=== PATIENT | male | born 1975 | race Caucasian/White ===

== ENCOUNTER 2024-08-16 16:46 | Inpatient (IN) | payer BC, OTHER ==
[2024-08-16 16:52] VITALS: BMI 27.7
[2024-08-16] MEDS ORDERED: VANCOMYCIN HCL 1,500 MG in DEXTROSE 5%-WATER - 500 ML IVPB ONE (17:49)
[2024-08-16] MEDS ORDERED: ACETAMINOPHEN INJECTION 100 ML ONE (18:02)
[2024-08-16] MEDS ORDERED: PIPERACILLIN/TAZOB 3.375 GM 3.375 GM/50 ML BAG IVPB ONE (18:03)
[2024-08-16 18:35] LABS: EOS % 3.4 % (0-4.5); HEMATOCRIT 39.7 % (35.4-49); HEMOGLOBIN 13.6 GM/dL (11.7-16.9); LYMPH % 25.3 % (8-40); MCH 28.9 pg (25.7-33.7); MCHC 34.2 g/dl (32.0-35.9); MEAN CELL VOLUME 84.6 fl (80-96); MEAN PLT VOLUME 8.5 fl (7.5-11.1); MONO % 6.2 % (3.8-10.2); NEUT % 64.1 % (42.8-82.8); PLATELET COUNT 258 10^3/uL (134-434); RDW 13.6 % (11.9-15.9); WHITE BLOOD COUNT 4.6 K/mm3 (4.0-10.0)
[2024-08-16] MEDS: ACETAMINOPHEN 1000 MG/100 ML BAG IVPB ONE (18:42)
[2024-08-16] MEDS: PIPERACILLIN/TAZOB 3.375 GM 3.375 GM in DEXTROSE 5%-WATER - 50 ML IVPB ONE (18:42)
[2024-08-16 18:43] LABS: INR 0.93 (0.83-1.09); PROTHROMBIN TIME (PATIENT) 10.7 SEC (9.7-13.0)
[2024-08-16] MEDS: SODIUM CHLORIDE 0.9% 500 ML INFUS.BAG IV ONE (18:43)
[2024-08-16 18:46] LABS: ACTIVATED PTT 33.7 SECONDS (25.2-36.5)
[2024-08-16 18:58] LABS: POTASSIUM 3.9 mmol/L (3.5-5.1)
[2024-08-16 19:02] LABS: ALBUMIN 3.2 g/dl (3.4-5.0)
[2024-08-16 19:05] LABS: CREATININE 0.8 mg/dL (0.55-1.3)
[2024-08-16 19:07] LABS: BILIRUBIN,TOTAL 0.5 mg/dL (0.2-1); TOT PROT 7.3 g/dl (6.4-8.2)
[2024-08-16] MEDS: VANCOMYCIN PREMIX 1.5 GM 1,500 MG/300 ML BAG IVPB ONE (20:39)
[2024-08-16] MEDS: SODIUM CHLORIDE 1,000 ML IV SCH (20:39)
[2024-08-16] MEDS ORDERED: PIPERACILLIN/TAZOB 3.375 GM 3.375 GM in DEXTROSE 5%-WATER - 50 ML IVPB SCH (21:00)
[2024-08-16] MEDS: INSULIN REGULAR HUMAN 100 UNITS/ML *VIAL IVPUSH ONE (21:15)
[2024-08-16] MEDS: INSULIN (NOVOLOG) ASPART 100 UNITS/ML 10ML VIAL SQ ONE ×2 (21:15→21:41)
[2024-08-16] MEDS: INSULIN (LEVEMIR) 100 UNITS/ML UNITS SQ SCH (23:18)
[2024-08-16] MEDS: PIPERACILLIN/TAZOB 3.375 GM 50 ML IVPB SCH (23:18)
[2024-08-16] MEDS: NICOTINE 21 MG/24 HOURS TOPICAL PATCH TD SCH (23:18)
[2024-08-17] MEDS ORDERED: PIPERACILLIN/TAZOB 3.375 GM 3.375 GM in DEXTROSE 5%-WATER - 50 ML IVPB SCH
[2024-08-17] MEDS: INSULIN ASPART SLIDING SCALE (NOVOLOG) 1 VIAL SQ SCH (06:36)
[2024-08-17] MEDS ORDERED: morphine SULFATE 4 MG/ML VIAL IVPUSH PRN (07:18)
[2024-08-17] MEDS ORDERED: VANCOMYCIN HCL 1,500 MG in DEXTROSE 5%-WATER - 250 ML IVPB SCH (09:00)
[2024-08-17] MEDS: ENOXAPARIN NA (PORCINE) 40 MG/0.4 ML DISP.SYRIN SQ SCH (09:11)
[2024-08-17] MEDS: VANCOMYCIN PREMIX 1.5 GM 1,500 MG/300 ML BAG IVPB SCH (09:11)
[2024-08-17 10:09] LABS: EOS % 5.2 % (0-4.5); HEMATOCRIT 34.8 % (35.4-49); LYMPH % 36.3 % (8-40); MCH 29.2 pg (25.7-33.7); MCHC 34.4 g/dl (32.0-35.9); MEAN CELL VOLUME 84.8 fl (80-96); MEAN PLT VOLUME 8.9 fl (7.5-11.1); NEUT % 49.5 % (42.8-82.8); PLATELET COUNT 212 10^3/uL (134-434); RBC 4.11 M/mm3 (4.00-5.60); RDW 13.5 % (11.9-15.9); WHITE BLOOD COUNT 4.2 K/mm3 (4.0-10.0)
[2024-08-17 10:41] LABS: ALBUMIN 2.7 g/dl (3.4-5.0); BLOOD UREA NITROGEN 15.3 mg/dL (7-18)
[2024-08-17 10:44] LABS: CREATININE 0.8 mg/dL (0.55-1.3); PHOSPHOROUS 3.8 mg/dL (2.5-4.9)
[2024-08-17 10:45] LABS: BILIRUBIN,TOTAL 0.4 mg/dL (0.2-1); TOT PROT 6.2 g/dl (6.4-8.2)
[2024-08-17 10:46] LABS: CALCIUM 8.5 mg/dL (8.5-10.1); MAGNESIUM 1.6 mg/dL (1.8-2.4)
[2024-08-18] MEDS: MELATONIN 5 MG TABLETS PO ONE (00:03)
[2024-08-18] MEDS: ACETAMINOPHEN 500 MG TABLET (FP) PO PRN (00:04)
[2024-08-18 11:09] LABS: POTASSIUM 4.1 mmol/L (3.5-5.1)
[2024-08-18 11:15] LABS: CALCIUM 9.4 mg/dL (8.5-10.1); MAGNESIUM 1.8 mg/dL (1.8-2.4)
[2024-08-18 11:19] LABS: CREATININE 0.8 mg/dL (0.55-1.3)
[2024-08-18] MEDS: INSULIN (NOVOLOG) ASPART 100 UNITS/ML 10ML VIAL SQ SCH (17:14)
[2024-08-18] MEDS: INSULIN (LEVEMIR) 100 UNITS/ML UNITS SQ SCH (21:10)
[2024-08-19 09:29] LABS: BASO % 1.1 % (0-2.0); EOS % 5.6 % (0-4.5); HEMATOCRIT 37.7 % (35.4-49); HEMOGLOBIN 12.6 GM/dL (11.7-16.9); LYMPH % 28.2 % (8-40); MCH 28.7 pg (25.7-33.7); MCHC 33.3 g/dl (32.0-35.9); MEAN CELL VOLUME 86.1 fl (80-96); MEAN PLT VOLUME 8.6 fl (7.5-11.1); MONO % 7.5 % (3.8-10.2); NEUT % 57.6 % (42.8-82.8); PLATELET COUNT 244 10^3/uL (134-434); RBC 4.38 M/mm3 (4.00-5.60); RDW 13.6 % (11.9-15.9); WHITE BLOOD COUNT 5.8 K/mm3 (4.0-10.0)
[2024-08-19] MEDS: MELATONIN 5 MG TABLETS PO ONE (21:57)
[2024-08-20] MEDS: VANCOMYCIN/WATER FOR INJ (PEG) 1,000 MG/200 ML BAG IVPB SCH (00:54)
[2024-08-20] MEDS: PIPERACILLIN/TAZOB 3.375 GM 50 ML IVPB SCH (02:17)
[2024-08-20 10:32] LABS: BASO % 0.8 % (0-2.0); EOS % 4.2 % (0-4.5); HEMATOCRIT 37.4 % (35.4-49); HEMOGLOBIN 12.7 GM/dL (11.7-16.9); LYMPH % 23.6 % (8-40); MCH 28.9 pg (25.7-33.7); MEAN CELL VOLUME 85.1 fl (80-96); MEAN PLT VOLUME 8.8 fl (7.5-11.1); MONO % 8.2 % (3.8-10.2); NEUT % 63.2 % (42.8-82.8); PLATELET COUNT 240 10^3/uL (134-434); RDW 13.5 % (11.9-15.9); WHITE BLOOD COUNT 6.3 K/mm3 (4.0-10.0)
[2024-08-20 11:28] LABS: POTASSIUM 3.7 mmol/L (3.5-5.1)
[2024-08-20 11:42] LABS: CALCIUM 9.1 mg/dL (8.5-10.1)
[2024-08-20 11:43] LABS: ALBUMIN 3.2 g/dl (3.4-5.0); BLOOD UREA NITROGEN 14.7 mg/dL (7-18)
[2024-08-20 11:46] LABS: CREATININE 0.7 mg/dL (0.55-1.3)
[2024-08-20 11:47] LABS: BILIRUBIN,TOTAL 0.4 mg/dL (0.2-1); TOT PROT 6.9 g/dl (6.4-8.2)
[2024-08-20] MEDS: MELATONIN 5 MG TABLETS PO ONE (23:30)
[2024-08-21] MEDS: VANCOMYCIN 1 GM PREMIX (F) 1,000 MG/200 ML BAG IVPB SCH (00:33)
[2024-08-21] MEDS: oxyCODONE HCL 5 MG TABLET PO PRN (21:14)
[2024-08-21] MEDS: MELATONIN 5 MG TABLETS PO ONE (21:15)
[2024-08-22 09:09] LABS: BASO % 1.2 % (0-2.0); EOS % 5.2 % (0-4.5); HEMATOCRIT 38.3 % (35.4-49); HEMOGLOBIN 13.1 GM/dL (11.7-16.9); LYMPH % 30.8 % (8-40); MCH 29.3 pg (25.7-33.7); MCHC 34.3 g/dl (32.0-35.9); MEAN CELL VOLUME 85.5 fl (80-96); MEAN PLT VOLUME 8.8 fl (7.5-11.1); MONO % 9.5 % (3.8-10.2); NEUT % 53.3 % (42.8-82.8); PLATELET COUNT 237 10^3/uL (134-434); RBC 4.48 M/mm3 (4.00-5.60); RDW 13.8 % (11.9-15.9); WHITE BLOOD COUNT 5.6 K/mm3 (4.0-10.0)
[2024-08-22 09:25] LABS: POTASSIUM 3.8 mmol/L (3.5-5.1)
[2024-08-22 09:27] LABS: ALBUMIN 3.2 g/dl (3.4-5.0); BLOOD UREA NITROGEN 21.8 mg/dL (7-18); CALCIUM 9.1 mg/dL (8.5-10.1)
[2024-08-22 09:31] LABS: CREATININE 0.7 mg/dL (0.55-1.3)
[2024-08-22 09:33] LABS: BILIRUBIN,TOTAL 0.4 mg/dL (0.2-1); TOT PROT 6.9 g/dl (6.4-8.2)
[2024-08-22] MEDS: MELATONIN 5 MG TABLETS PO ONE (21:40)
[2024-08-23] MEDS: sitaGLIPtin PHOSPHATE 50 MG TABLET PO SCH (06:34)
[2024-08-23] MEDS: CEFTRIAXONE 2 GM-D5W BAG 2 GM/50 ML BAG IVPB SCH (10:04)
[2024-08-23] MEDS: MELATONIN 5 MG TABLETS PO PRN (21:43)
[2024-08-23 21:59] VITALS: RESP 18
[2024-08-24] MEDS: CEFTRIAXONE 2 GM-D5W BAG 2 GM/50 ML BAG IVPB ONE (06:04)
[2024-08-24 15:02] VITALS: BP 127/81; PULSE 82; TEMP 97.3
== END 2024-08-24 18:20 | disposition home or self-care (01) | DRG 383 ==
LOC: JER 16:46 → JERBED 19:38 → J6S 21:47
PROVIDERS: ADMIT Internal Medicine; ATTEND Internal Medicine
PROC: 02HV33Z Insertion of Infusion Device into Superior Vena Cava, Percutaneous Approach (ICD-10-PCS; principal; 2024-08-24)
PROC: B518ZZA Fluoroscopy of Superior Vena Cava, Guidance (ICD-10-PCS; 2024-08-24)
DX: L03.115 Cellulitis of right lower limb (principal); L03.031 Cellulitis of right toe; E11.65 Type 2 diabetes mellitus with hyperglycemia; F17.200 Nicotine dependence, unspecified, uncomplicated; E11.69 Type 2 diabetes mellitus with other specified complication; M86.8X7 Other osteomyelitis, ankle and foot; B95.1 Streptococcus, group B, as the cause of diseases classified elsewhere; E11.621 Type 2 diabetes mellitus with foot ulcer; L97.518 Non-pressure chronic ulcer of other part of right foot with other specified severity; M84.477A Pathological fracture, right toe(s), initial encounter for fracture; L02.611 Cutaneous abscess of right foot; Z89.421 Acquired absence of other right toe(s); Z91.148 Patient's other noncompliance with medication regimen for other reason
CPT/HCPCS: 36415; 36569; 73630-TC-RT-FY; 73718-TC-RT; 80048; 80053; 82962; 83036; 83605; 83735; 84100; 85025; 85610; 85651; 85730; 86140; 86803; 86850; 86900; 86901; 87040; 87070; 87075; 87076; 87077; 87081; 87186; 87205; 93005; 93010; 93922; 93925-TC; 99285-25; J0131

== ENCOUNTER 2024-08-26 14:29 | Day surgery (SDC) | payer OTHER ==
[2024-08-26] MEDS: ERTAPENEM SODIUM 1 GM in SODIUM CHLORIDE 50 ML IVPB ONE (15:00)
[2024-08-26 15:51] VITALS: BP 122/80; PULSE 85; RESP 16; TEMP 97.7
== END 2024-08-26 15:55 | disposition home or self-care (01) ==
LOC: FINFUSION 14:29 → FM/S 14:29 → FINFUSION 15:55
PROVIDERS: ATTEND Internal Medicine
DX: M86.171 Other acute osteomyelitis, right ankle and foot (principal)
CPT/HCPCS: 96365

== ENCOUNTER 2024-08-27 14:43 | Day surgery (SDC) | payer OTHER ==
[2024-08-27] MEDS: ERTAPENEM SODIUM 1 GM in SODIUM CHLORIDE 50 ML IVPB SCH (14:57)
[2024-08-27 15:44] VITALS: BP 122/80; PULSE 85; RESP 17; TEMP 97.8
== END 2024-08-27 15:46 | disposition home or self-care (01) ==
LOC: FM/S 14:43 → FINFUSION 14:43
PROVIDERS: ATTEND Internal Medicine
DX: M86.171 Other acute osteomyelitis, right ankle and foot (principal)
CPT/HCPCS: 96365

== ENCOUNTER 2024-08-29 14:33 | Day surgery (SDC) | payer OTHER ==
[2024-08-29] MEDS: ERTAPENEM SODIUM 1 GM in SODIUM CHLORIDE 50 ML IVPB ONE (15:08)
[2024-08-29 15:47] VITALS: BP 112/77; PULSE 69; RESP 18; TEMP 98.2
== END 2024-08-29 15:47 | disposition home or self-care (01) ==
LOC: FINFUSION 14:33 → FM/S 14:35 → FINFUSION 15:47
PROVIDERS: ATTEND Internal Medicine
DX: M86.171 Other acute osteomyelitis, right ankle and foot (principal)
CPT/HCPCS: 96365